=== PATIENT | female | born 1985 | race Caucasian/White ===

== ENCOUNTER 2018-10-21 19:20 | Inpatient (IN) | payer OTHER ==
[~2018-10-21 19:20] MED LIST: DEXTROSE 5%-LACTATED RINGERS 500 ML IV ONE
[2018-10-21] MEDS ORDERED: DEXTROSE 5%-LACTATED RINGERS 250 ML IV ONE (20:20)
[2018-10-21 21:04] LABS: BASO % 0.6 % (0-2.0); EOS % 0.3 % (0-4.5); HEMATOCRIT 37.5 % (32.4-45.2); HEMOGLOBIN 12.7 GM/dL (10.7-15.3); LYMPH % 18.9 % (8-40); MCH 31.1 pg (25.7-33.7); MCHC 33.9 g/dl (32.0-36.0); MEAN PLT VOLUME 9.9 fl (7.5-11.1); MONO % 5.5 % (3.8-10.2); NEUT % 74.7 % (42.8-82.8); PLATELET COUNT 157 K/MM3 (134-434); RBC 4.08 M/mm3 (3.60-5.2)
[2018-10-21] MEDS ORDERED: DEXTROSE 5%-LACTATED RINGERS 1,000 ML IV SCH ×2 (21:20→22:15)
[2018-10-21 21:21] LABS: INR 0.91 (0.83-1.09); PROTHROMBIN TIME (PATIENT) 10.7 SEC (9.7-13.0)
[2018-10-21 21:23] LABS: ACTIVATED PTT 26.9 SECONDS (25.2-36.5)
[2018-10-21 21:28] LABS: ANION GAP 10 MMOL/L (8-16); BLOOD UREA NITROGEN 12 mg/dL (7-18); CALCIUM 8.4 mg/dL (8.5-10.1); CHLORIDE 108 mmol/L (98-107); CO2 20 mmol/L (21-32); CREATININE 0.5 mg/dL (0.55-1.3); GLUCOSE,RANDOM 89 mg/dL (74-106); POTASSIUM 3.9 mmol/L (3.5-5.1); SODIUM 139 mmol/L (136-145)
[2018-10-21 21:40] VITALS: BMI 30.2
[2018-10-21] MEDS ORDERED: DINOPROSTONE 10 MG VAGINAL SUPPOSITORY VG ONE (22:00)
--- NOTE | 2018-10-21 22:08 | HP ---
Past Medical History - Admission Chief Complaint: Postdates History of Present Illness: 33 yo @ 40.6 weeks gestation, EDC 10/15/18, admitted for induction of labor. Upon admission she was 1cm dilated with favorable cervix. History Source: Patient Limitations to Obtaining History: No Limitations - Past Medical History ...: 4 ...Para: 1 ...Term: 1 ...: 0 ...Spon : 1 ...Induced : 1 ...Multiple Gestation: 0 ...LMP: 01/08/18 ... Weeks Gestation by Dates: 40.6 ...EDC by Dates: 10/15/18 - Past Surgical History Past Surgical History: Yes: None Hx Myomectomy: No Hx Transabdominal Cerclage: No - Smoking History Smoking history: Never smoked Have you smoked in the past 12 months: No - Alcohol/Substance Use Hx Alcohol Use: No - Social History Usual Living Arrangement: Yes: With Significant Other Home Medications - Allergies Allergies/Adverse Reactions: Allergies Allergy/AdvReac Type Severity Reaction Status Date / Time No Known Allergies Allergy Verified 10/21/18 21:17 - Home Medications Home Medications: Ambulatory Orders Vitamins (Sjr) - 1 tab PO DAILY 10/21/18 Family Disease History - Family Disease History Family History: Unremarkable Review of Systems - Review of Systems Constitutional: reports: No Symptoms Eyes: reports: No Symptoms HENT: reports: No Symptoms Neck: reports: No Symptoms Cardiovascular: reports: No Symptoms Respiratory: reports: No Symptoms Gastrointestinal: reports: No Symptoms Genitourinary: reports: No Symptoms Breasts: reports: No Symptoms Reported Neurological: reports: No Symptoms Psychiatric: reports: No Symptoms Pain Intensity: 2 Physical Exam - Maternity Vital Signs: Vital Signs Temperature 98.5 F 10/21/18 21:00 Pulse Rate 100 H 10/21/18 21:00 Respiratory Rate 20 10/21/18 21:00 Blood Pressure 105/62 10/21/18 21:00 O2 Sat by Pulse Oximetry (%) Constitutional: Yes: Well Nourished Eyes: Yes: Conjunctiva Clear HENT: Yes: Atraumatic Neck: Yes: Supple Cardiovascular: Yes: Regular Rate and Rhythm Lungs: Clear to auscultation - Abdominal Exam/OB Number of Fetuses: Single Presentation: Vertex - Vaginal Exam/OB Vaginal Bleediing: No Dilatation (cm): 1 Effacement (%): 70 Amniotic Membrane Status: Intact Presentation: Vertex/Position Station: -3 - Physical Exam ...Motor Strength: WNL Psychiatric: Yes: Alert, Oriented - Labs Lab Results: CBC, BMP 10/21/18 20:35 10/21/18 20:35 Problem List - Problems (1) Post-term , 40-42 weeks of gestation Code(s): O48.0 - POST-TERM Assessment/Plan Post term Admit for IOL Cervidil induction Re-evaluate in 12 hours or before if indicated.
--- NOTE | 2018-10-21 22:10 | PN ---
Progress Note (short form) - Note Progress Note: Patient re-evaluated. She c/o mild discomfort. FHR : Reassuring [place] : + contractions Q 1 min VE : 1-2 / 70 / -3 Cervidil removed Continue observation Problem List - Problems (1) Post-term , 40-42 weeks of gestation Code(s): O48.0 - POST-TERM
[2018-10-21] MEDS ORDERED: BUTORPHANOL TARTRATE 2 MG/ML VIAL ONE (23:35)
[2018-10-21] MEDS ORDERED: PROMETHAZINE HCL 25 MG/1 ML VIAL ONE (23:35)
[2018-10-21] MEDS ORDERED: BUTORPHANOL TARTRATE 2 MG/ML VIAL IVPB ONE (23:45)
[2018-10-21] MEDS ORDERED: PROMETHAZINE HCL 25 MG/1 ML VIAL IVPB ONE (23:45)
[2018-10-22] MEDS ORDERED: OXYTOCIN 30 UNITS in 0.9% NS 30 UNIT/500 ML INFUS.BAG IVPB SCH (01:15)
[2018-10-22] MEDS ORDERED: OXYTOCIN 30 UNITS in 0.9% NS 30 UNIT/500 ML INFUS.BAG IVPB ONE (01:15)
[2018-10-22] MEDS ORDERED: TERBUTALINE SULFATE 1 MG/1 ML VIAL SQ ONE ×2 (01:55→01:56)
--- NOTE | 2018-10-22 01:58 | PN ---
Progress Note (short form) - Note Progress Note: Patient re-evaluated. She c/o mild discomfort. FHR : Reassuring [place] : + contractions Q 1 min VE : 4/70/-2 Terbutaline trial to give uterus some rest. Continue observation Problem List - Problems (1) Post-term , 40-42 weeks of gestation Code(s): O48.0 - POST-TERM
--- NOTE | 2018-10-22 07:03 | PN ---
Progress Note (short form) - Note Progress Note: Patient re-evaluated. She c/o moderate discomfort. FHR : Non-reassuring [place] : + contractions Q 2 mins VE : 4/70/-2 + Meconium A/P : 41 weeks gestation Arrest of dilatation Pre op for Consent signed Anesthesia to see patient Problem List - Problems (1) Post-term , 40-42 weeks of gestation Code(s): O48.0 - POST-TERM
[2018-10-22] MEDS ORDERED: CITRIC ACID/SODIUM CITRATE 30 ML UNIT-DOSE CUP PO ONE (07:04)
[2018-10-22] MEDS ORDERED: ELECTROLYTE-148 SOLN 1,000 ML IV SCH (07:15)
[2018-10-22] MEDS ORDERED: OXYTOCIN 20 UNITS in 0.9% NS 20 UNIT/1,000 ML INFUS.BAG IV ONE ×2 (07:31→10:11)
[2018-10-22] MEDS ORDERED: ceFAZolin SODIUM 1 GM VIAL ONE (07:47)
[2018-10-22] MEDS ORDERED: morphine SULFATE/Preservative Free 0.5 MG/ML (1cc Syringe) ONE (07:48)
[2018-10-22] MEDS ORDERED: morphine SULFATE/Preservative Free 0.5 MG/ML (1cc Syringe) SPIN ONE (07:57)
[2018-10-22] MEDS ORDERED: PHENYLEPHRINE HCL 10 MG/1 ML SINGLE DOSE VIAL ONE (08:01)
[2018-10-22] MEDS ORDERED: OXYTOCIN 10 UNITS/ML VIAL ONE (08:05)
[2018-10-22] MEDS ORDERED: KETOROLAC TROMETHAMINE 30 MG/1 ML VIAL ONE (08:12)
[2018-10-22] MEDS ORDERED: ONDANSETRON 4 MG/2 ML VIAL IVPUSH PRN (08:17)
[2018-10-22] MEDS: OXYTOCIN 20 UNITS in 0.9% NS 20 UNIT/1,000 ML INFUS.BAG IV SCH ×2 (08:30→21:55)
[2018-10-22] MEDS ORDERED: METHYLERGONOVINE MALEATE 0.2 MG/1 ML AMP IM PRN (08:43)
--- NOTE | 2018-10-22 08:46 | OP ---
Operative Note - Note: Operative Date: 10/22/18 Pre-Operative Diagnosis: Arrest of dilatation Operation: Primary Low Transverse Findings: Baby girl in cephallic presentation Post-Operative Diagnosis: Same as Pre-op Surgeon: Iesha Miranda Wordpress Developer: Reuben Saavedra Anesthesia: Spinal Specimens Removed: Placenta Estimated Blood Loss (mls): 600 Operative Report Dictated: Yes
[2018-10-22] MEDS: PRENATAL VITAMINS W/ FOLIC ACID TABLET (FP) PO SCH (10:00)
[2018-10-22] MEDS: FERROUS SO4 325 MG TABLET (FP) PO SCH ×2 (10:00→22:08)
--- NOTE | 2018-10-22 10:23 | OP ---
DATE OF OPERATION: 10/22/2018 PREOPERATIVE DIAGNOSIS: A 41 weeks' gestation with arrest of dilatation. POSTOPERATIVE DIAGNOSIS: A 41 weeks' gestation with arrest of dilatation. PROCEDURE: Primary low transverse section. SURGEON: Iesha Miranda MD FEED WEIGHER: JERRELL Madrigal ANESTHESIA: Spinal. COMPLICATIONS: None. ESTIMATED BLOOD LOSS: 600 mL. DESCRIPTION OF PROCEDURE: Patient was taken to the operating room where spinal anesthesia was administered. Patient was then prepped and draped in proper sterile fashion. A Pfannenstiel skin incision was made and carried down to through the underlying layer of fascia. The fascia was incised in the midline and extended laterally. The superior aspect of the fascial incision was then grasped with a Emely clamp, elevated, and the rectus muscles dissected off bluntly. The rectus muscle was then in the midline. The peritoneum identified and entered sharply with the Metzenbaum scissors. The peritoneal incision was extended superiorly and inferiorly with good visualization of the bladder. The bladder blade was then inserted. Then the vesicouterine peritoneum was then grasped with pickups and entered sharply with the Metzenbaum scissors. This incision was extended laterally, and a bladder flap created digitally. The lower uterine segment was then incised with a 10 blade. This incision was then extended, and the head delivered atraumatically. Nose and mouth were suctioned, and the cord clamped and cut. The was handed to the awaiting general office assistant. The placenta was then removed manually. The uterus was exteriorized and cleared of all clots and debris. The uterine incision was repaired using 0 Biosyn in a running locked fashion, and the second layer of the same suture was used as a means to provide excellent hemostasis. Then, the pelvis was then completely irrigated. The uterus was returned to the abdomen. The peritoneum was closed using 2-0 Biosyn. The fascia was reapproximated using 0 Vicryl in a running fashion. The skin was closed in a subcuticular fashion using 3-0 Vicryl. Patient tolerated procedure well. Patient was taken to PACU in stable condition. PATHOLOGY: Placenta. Valentín [id number] MTDD
[2018-10-22] MEDS ORDERED: SODIUM CHLORIDE 100 ML IVPB ONE (13:27)
[2018-10-22] MEDS ORDERED: AMPICILLIN SODIUM 1 GM VIAL ONE (13:27)
[2018-10-22] MEDS: IBUPROFEN 800 MG/8 ML IJ IVPB PRN ×2 (14:09→21:55)
[2018-10-23 08:07] LABS: BASO % 0.3 % (0-2.0); EOS % 0.5 % (0-4.5); HEMATOCRIT 30.7 % (32.4-45.2); HEMOGLOBIN 10.6 GM/dL (10.7-15.3); LYMPH % 19.8 % (8-40); MCHC 34.7 g/dl (32.0-36.0); MEAN CELL VOLUME 92.2 fl (80-96); MEAN PLT VOLUME 9.5 fl (7.5-11.1); MONO % 6.3 % (3.8-10.2); NEUT % 73.1 % (42.8-82.8); PLATELET COUNT 130 K/MM3 (134-434); RBC 3.33 M/mm3 (3.60-5.2); WHITE BLOOD COUNT 10.2 K/mm3 (4.0-10.0)
[2018-10-23] MEDS: ACETAMINOPHEN 325 MG TABLET (FP) PO PRN ×3 (08:33→21:27)
[2018-10-23] MEDS: IBUPROFEN 600 MG TABLET (FP) PO PRN ×3 (08:34→21:27)
[2018-10-23] MEDS: SIMETHICONE 80 MG TAB.CHEW (FP) PO PRN (08:34)
[2018-10-23] MEDS ORDERED: BISACODYL 10 MG SUPP.RECT RC PRN (08:43)
[2018-10-23] MEDS: PRENATAL VITAMINS W/ FOLIC ACID TABLET (FP) PO SCH (10:26)
[2018-10-23] MEDS: FERROUS SO4 325 MG TABLET (FP) PO SCH ×2 (10:26→22:19)
--- NOTE | 2018-10-23 13:56 | PN ---
Progress Note (short form) - Note Progress Note: POD #1 - s/p under spinal anesthesia with duramorph. VSS. Pt. doing well, resting comfortably in bed. No complaints. Good pain control. No apparent anesthetic complications noted. Continue current care.
--- NOTE | 2018-10-24 05:30 | PN ---
Post Progress Note - Subjective Subjective: Pt seen/evaluated and doing well. Some incisional pain but improves with medicine. Tolerating diet. Ambulating, voiding. VB minimal. No complaints this a.m. Type of Delivery: Primary C/S Vital Signs: Vital Signs Temperature 98.6 F 10/23/18 22:00 Pulse Rate 67 10/23/18 22:00 Respiratory Rate 18 10/23/18 22:00 Blood Pressure 118/63 10/23/18 22:00 O2 Sat by Pulse Oximetry (%) 98 10/22/18 21:19 Breast Exam: Yes: Soft Uterus: Yes: Fundus Firm Incision: Yes: Dressing dry and intact Abdomen/GI: Yes: Abdomen soft, Tolerating PO. No: Abdominal Distention Lochia: Yes: Rubra Lochia, amount: Small Extremities: Yes: Calves non-tender Perineum: Yes: Intact Activity: Ambulating - Labs Labs: CBC WBC 10.2 K/mm3 (4.0-10.0) H 10/23/18 07:36 RBC 3.33 M/mm3 (3.60-5.2) L 10/23/18 07:36 Hgb 10.6 GM/dL (10.7-15.3) L 10/23/18 07:36 Hct 30.7 % (32.4-45.2) L D 10/23/18 07:36 MCV 92.2 fl (80-96) 10/23/18 07:36 MCH 32.0 pg (25.7-33.7) 10/23/18 07:36 MCHC 34.7 g/dl (32.0-36.0) 10/23/18 07:36 RDW 16.0 % (11.6-15.6) H 10/23/18 07:36 Plt Count 130 K/MM3 (134-434) L 10/23/18 07:36 MPV 9.5 fl (7.5-11.1) 10/23/18 07:36 Absolute Neuts (auto) 7.5 K/mm3 (1.5-8.0) 10/23/18 07:36 Neutrophils % 73.1 % (42.8-82.8) 10/23/18 07:36 Lymphocytes % 19.8 % (8-40) 10/23/18 07:36 Monocytes % 6.3 % (3.8-10.2) 10/23/18 07:36 Eosinophils % 0.5 % (0-4.5) 10/23/18 07:36 Basophils % 0.3 % (0-2.0) 10/23/18 07:36 Nucleated RBC % 0 % (0-0) 10/23/18 07:36 Problem List - Problems (1) delivery delivered Code(s): O82 - ENCOUNTER FOR DELIVERY WITHOUT INDICATION Assessment/Plan 33 y/o PPD#2 s/p primary delivery for arrest of dilation AFVSS Hgb 10.6, will repeat in a.m. regular diet PO pain meds encourage ambulation
[2018-10-24] MEDS: ACETAMINOPHEN 325 MG TABLET (FP) PO PRN (06:26)
[2018-10-24] MEDS: SIMETHICONE 80 MG TAB.CHEW (FP) PO PRN ×3 (06:26→21:17)
[2018-10-24] MEDS: IBUPROFEN 600 MG TABLET (FP) PO PRN ×3 (06:27→21:17)
[2018-10-24] MEDS: PRENATAL VITAMINS W/ FOLIC ACID TABLET (FP) PO SCH (09:12)
[2018-10-24] MEDS: FERROUS SO4 325 MG TABLET (FP) PO SCH ×2 (09:12→21:17)
[2018-10-24] MEDS: oxyCODONE HCL 5 MG TABLET PO PRN ×2 (12:44→21:17)
[2018-10-25 06:42] LABS: BASO % 0.6 % (0-2.0); EOS % 1.3 % (0-4.5); HEMATOCRIT 34.7 % (32.4-45.2); HEMOGLOBIN 11.7 GM/dL (10.7-15.3); LYMPH % 25.8 % (8-40); MCH 31.1 pg (25.7-33.7); MCHC 33.7 g/dl (32.0-36.0); MEAN CELL VOLUME 92.1 fl (80-96); MEAN PLT VOLUME 9.1 fl (7.5-11.1); MONO % 5.3 % (3.8-10.2); PLATELET COUNT 176 K/MM3 (134-434); RBC 3.77 M/mm3 (3.60-5.2); RDW 15.9 % (11.6-15.6); WHITE BLOOD COUNT 9.2 K/mm3 (4.0-10.0)
[2018-10-25] MEDS: PRENATAL VITAMINS W/ FOLIC ACID TABLET (FP) PO SCH (09:50)
[2018-10-25] MEDS: FERROUS SO4 325 MG TABLET (FP) PO SCH (09:50)
--- NOTE | 2018-10-25 09:51 | DS ---
Physical Exam-SEARCH ENGINE OPTIMIZER Vital Signs: Vital Signs Temperature 98.1 F 10/24/18 22:00 Pulse Rate 66 10/24/18 22:00 Respiratory Rate 20 10/24/18 22:00 Blood Pressure 109/75 10/24/18 22:00 O2 Sat by Pulse Oximetry (%) 98 10/22/18 21:19 Constitutional: Yes: Well Nourished, No Distress, Calm Eyes: Yes: Conjunctiva Clear, EOM Intact HENT: Yes: Normocephalic Neck: Yes: Supple Cardiovascular: Yes: Regular Rate and Rhythm Respiratory: Yes: Regular Gastrointestinal: Yes: Soft External Genitalia: Yes: Normal ....Post : Yes: Uterus firm, Uterus non-tender Wound/Incision: Yes: Clean/Dry, Well Approximated Psychiatric: Yes: Alert, Oriented Labs: CBC, BMP 10/25/18 06:30 10/21/18 20:35 Delivery - Delivery Type of Anesthesia: Spinal Episiotomy/Laceration: None EBL (cc): 500 Delivery, Single - Stages of Labor Date 1st Stage Initiatied: 10/22/18 Time 1st Stage Initiated: 00:00 Date of Delivery: 10/22/18 Time of Delivery: 08:09 Time Placenta Delivered: 08:10 Placenta: Yes: Manual Removal - Condition of Infant Developmental Training Counselor/Alteration Tailor Present: Yes Name: Raf Rice Infant Gender: Female Weight: 9 lb 1 oz Total Hours ROM (Hrs/Mins): 7/05 - 1 Minute Total Score: 8 5 Minutes Total Score: 9 - Feeding Plan Initial Plan: Elected not to breastfeed exclusively throughout hospitalization Discharge Summary Reason For Visit: CERVICAL INDUCTION Current Active Problems delivery delivered (Acute) Post-term , 40-42 weeks of gestation (Acute) Hospital Course: Pt admitted for labor induction and underwent uncomplicated delivery on 10/22/18 for arrest of dilation. She underwent an uncomplicated post / post op course and was discharged home on post op day 3. - Instructions - Home Medications Comprehensive Discharge Medication List: Ambulatory Orders Vitamins (Sjr) - 1 tab PO DAILY 10/21/18
[2018-10-25] MEDS: ACETAMINOPHEN 325 MG TABLET (FP) PO PRN (09:54)
[2018-10-25] MEDS: IBUPROFEN 600 MG TABLET (FP) PO PRN (09:55)
[2018-10-25] MEDS: SIMETHICONE 80 MG TAB.CHEW (FP) PO PRN (09:56)
[2018-10-25 10:22] VITALS: BP 103/62; PULSE 62; TEMP 97.9
--- NOTE | 2018-10-28 18:33 | PATH ---
Surgical Pathology Report Patient Name: ISIDRA ZAMBRANO Med. Rec. #: [id number] /Age/Gender: 1985 (Age: 33) / F Account: [id number] Location: [facility] OBS/ADOLESCENT SPECIALIST Taken: 10/22/2018 Received: 10/22/2018 Reported: 10/28/2018 Physicians: Iesha Miranda M.D. Specimen(s) Received PLACENTA Clinical History , arrest of dilatation Final Diagnosis PLACENTA, SECTION: 534 G THIRD TRIMESTER PLACENTA WITH TRIVASCULAR UMBILICAL CORD AND UNREMARKABLE PLACENTAL MEMBRANES. Electronically Signed Isidra Brito M.D. Gross Description The specimen is received fresh labeled placenta and is a 534 gram, 20.0 x 15.0 x 3.2 cm. markedly fragmented and disrupted placenta with attached membranes and umbilical cord. The attached membranes are maciel, translucent with focal opacities and insert marginally. The umbilical cord measures 15.5 cm. in length and averages 1.1 cm. in diameter. There is an additional 15 cm in length portion of umbilical cord separately received within the same container. The cord inserts eccentrically, 3.5 cm. to the nearest margin. No true knots or strictures are identified. Cut surface of the umbilical cord reveals 3 vessels. The surface is saucedo-blue with minimal fibrin deposition and appropriate caliber vessels. The maternal surface is red-brown with multi-focal defects. Sectioning reveals red-brown, spongy parenchyma. No lesions are identified. Embroidery Finisher sections are submitted in three cassettes as follows: 1- membrane rolls and umbilical cord; 2-3- full thickness sections of placenta. /10/26/[address] [facility]10/26/2018
== END 2018-10-25 11:45 | disposition home or self-care (01) | DRG 540 ==
LOC: JLDR 19:20 → J3W 10-22 10:50
PROVIDERS: ADMIT Obstetrics & Gynecology; ATTEND Obstetrics & Gynecology
PROC: 3E0P7VZ Introduction of Hormone into Female Reproductive, Via Natural or Artificial Opening (ICD-10-PCS; 2018-10-21)
PROC: 10D00Z1 Extraction of Products of Conception, Low, Open Approach (ICD-10-PCS; principal; 2018-10-22)
DX: O77.0 Labor and delivery complicated by meconium in amniotic fluid (principal); O62.1 Secondary uterine inertia; Z3A.41 41 weeks gestation of pregnancy; Z37.0 Single live birth
CPT/HCPCS: 36415; 80048; 85025; 85610; 85730; 86593; 86850; 86900; 86901; 88307-TC

== ENCOUNTER 2020-01-19 06:20 | Inpatient (IN) | payer OTHER ==
[2020-01-19] MEDS: ELECTROLYTE-148 SOLN 1,000 ML IV SCH (07:00)
[2020-01-19 07:23] VITALS: BMI 30.8
[2020-01-19] MEDS ORDERED: OXYTOCIN 10 UNITS/ML VIAL ONE (07:51)
[2020-01-19] MEDS ORDERED: ceFAZolin SODIUM 1 GM VIAL ONE (07:51)
[2020-01-19] MEDS ORDERED: PHENYLEPHRINE HCL 10 MG/1 ML SINGLE DOSE VIAL ONE (07:51)
[2020-01-19] MEDS ORDERED: morphine SULFATE/PF 0.5 MG/ML (2cc Syringe - QUVA) ONE (07:51)
[2020-01-19] MEDS ORDERED: OXYTOCIN 20 UNITS in 0.9% NS 40 UNIT/2,000 ML INFUS.BAG IV ONE (07:55)
--- NOTE | 2020-01-19 08:43 | HP ---
Past Medical History - Admission Chief Complaint: Elective History of Present Illness: 34 yo @ 39 weeks gestation, EDC 01/26/20, with previous , is pre op for repeat and BTL. History Source: Patient Limitations to Obtaining History: No Limitations - Past Medical History ...: 3 ...Para: 2 ...Term: 2 ...: 0 ...Spon : 0 ...Induced : 0 ...Living Children: 2 ...Multiple Gestation: 0 ...EDC by Sono: 01/26/20 - Past Surgical History Past Surgical History: Yes: Hx Myomectomy: No Hx Transabdominal Cerclage: No - Smoking History Smoking history: Never smoked Have you smoked in the past 12 months: No - Alcohol/Substance Use Hx Alcohol Use: No History of Substance Use: reports: None - Social History Usual Living Arrangement: Yes: With Significant Other History of Recent Travel: No Home Medications - Allergies Allergies/Adverse Reactions: Allergies Allergy/AdvReac Type Severity Reaction Status Date / Time No Known Allergies Allergy Verified 10/21/18 21:17 - Home Medications Home Medications: Ambulatory Orders Vitamins (Sjr) - 1 tab PO DAILY 10/21/18 Ibuprofen [Motrin -] 600 mg PO QID PRN #28 tablet 10/25/18 Oxycodone HCl/Acetaminophen [Percocet 5-325 mg Tablet -] 1 tab PO Q4H #20 tablet MDD 6 10/25/18 Family Medical History Family History: Unremarkable Review of Systems - Review of Systems Constitutional: reports: No Symptoms Eyes: reports: No Symptoms HENT: reports: No Symptoms Neck: reports: No Symptoms Cardiovascular: reports: No Symptoms Respiratory: reports: No Symptoms Gastrointestinal: reports: No Symptoms Genitourinary: reports: No Symptoms Breasts: reports: No Symptoms Reported Musculoskeletal: reports: No Symptoms Integumentary: reports: No Symptoms Neurological: reports: No Symptoms Psychiatric: reports: No Symptoms Pain Intensity: 0 Physical Exam - Maternity Vital Signs: Vital Signs Temperature 98.2 F 01/19/20 06:20 Pulse Rate 67 01/19/20 06:20 Respiratory Rate 18 01/19/20 06:20 Blood Pressure 103/51 L 01/19/20 06:20 O2 Sat by Pulse Oximetry (%) Constitutional: Yes: No Distress Eyes: Yes: Conjunctiva Clear HENT: Yes: Atraumatic Neck: Yes: Supple Cardiovascular: Yes: Regular Rate and Rhythm Lungs: Clear to auscultation - Abdominal Exam/OB Number of Fetuses: Single Presentation: Vertex - Physical Exam Musculoskeletal: Yes: WNL ...Motor Strength: WNL Psychiatric: Yes: Alert, Oriented Problem List - Problems (1) Previous section Problems reviewed: Yes Code(s): Z98.891 - HISTORY OF UTERINE SCAR FROM PREVIOUS SURGERY (2) Multiparity Problems reviewed: Yes Code(s): Z64.1 - PROBLEMS RELATED TO MULTIPARITY (3) Sterilization Problems reviewed: Yes Code(s): Z30.2 - ENCOUNTER FOR STERILIZATION Assessment/Plan Previous Pre op for repeat Consent signed Anesthesia to see patient
[2020-01-19] MEDS ORDERED: DEXAMETHASONE SOD PHOSPHATE 4 MG/1 ML VIAL ONE (09:00)
[2020-01-19] MEDS ORDERED: METHYLERGONOVINE MALEATE 0.2 MG/1 ML AMP IM PRN (09:42)
--- NOTE | 2020-01-19 09:42 | OP ---
Operative Note - Note: Operative Date: 01/19/20 Pre-Operative Diagnosis: Previous / Multiparity Operation: Repeat Low Transvese / Bilateral tubal ligation Findings: Baby girl in ROT position Post-Operative Diagnosis: Same as Pre-op Surgeon: Iesha Miranda Welfare Aide: Reuben Saavedra Anesthesia: Spinal Specimens Removed: Placenta / Portion of fallopian tubes Estimated Blood Loss (mls): 700
--- NOTE | 2020-01-19 09:54 | PN ---
Progress Note (short form) - Note Progress Note: Attened C/s for this 34yrs old mother with PNL- umm. COVID -19 neg, Quaniferon Pos delivered, clear fluid, cried soon after suctioned/ dried cord 3V, 9/9 clinically stable, [place] well perfused, HEENT- normocephalic AFOF, Chest B/L Symm, S1-S2 nl no murmur No organomegaly, Nl female FROM, Nl hip exam. Good tone & activity. RNBc watch for resp distress Encourage Bf/ bonding
[2020-01-19] MEDS: OXYTOCIN 20 UNITS in 0.9% NS 20 UNIT/1,000 ML INFUS.BAG IV SCH (09:55)
[2020-01-19] MEDS ORDERED: ONDANSETRON 4 MG/2 ML VIAL IVPUSH PRN (10:01)
[2020-01-19] MEDS ORDERED: ACETAMINOPHEN 1000 MG/100 ML VIAL (NON FORMULARY) IVPB PRN (10:02)
[2020-01-19] MEDS: FERROUS SO4 325 MG TABLET (FP) PO SCH ×2 (10:54→23:27)
[2020-01-19] MEDS: PRENATAL VITAMINS W/ FOLIC ACID TABLET (FP) PO SCH (10:54)
[2020-01-19] MEDS ORDERED: IBUPROFEN 800 MG/8 ML IJ IVPB ONE (11:04)
[2020-01-19] MEDS: IBUPROFEN 800 MG/8 ML IJ IVPB PRN (11:20)
--- NOTE | 2020-01-19 17:46 | OP ---
DATE OF OPERATION: 01/19/2020 PREOPERATIVE DIAGNOSIS: 39 weeks gestational, previous section, multiparity, desires permanent sterilization. POSTOPERATIVE DIAGNOSIS: 39 weeks gestational, previous section, multiparity, desires permanent sterilization. PROCEDURE: Repeat low transverse section and bilateral tubal ligation. SURGEON: Iesha Miranda MD. COLD ROLLING COORDINATOR: JERRELL Madrigal. ANESTHESIA: Spinal. COMPLICATIONS: None. ESTIMATED BLOOD LOSS: 700 mL. PROCEDURE: Patient was taken to the operating room where spinal anesthesia was administered. Patient was then prepped and draped in proper sterile fashion. A Pfannenstiel skin incision was made and carried down to the underlying layer of fascia. Fascia was incised in the midline and extended laterally. The superior aspect of the fascial incision was then grasped with a Emely clamp, elevated, and the rectus muscle dissected off bluntly. Attention was then turned to the inferior aspect of the fascial incision, which in a similar fashion was then grasped with a Emely clamp, elevated, and the rectus muscle dissected off bluntly. The rectus muscle was then in the midline, and the peritoneum identified and entered sharply with the Metzenbaum scissors. The peritoneal incision was extended superiorly and inferiorly with good visualization of the bladder. Then the vesicouterine peritoneum was then grasped with a pickup, and entered sharply with Metzenbaum scissors. This incision was extended laterally and a bladder flap created digitally. The bladder blade was inserted and the lower uterine segment was incised using a 10 blade. This incision was extended laterally, and the head delivered atraumatically. Nose and mouth were suctioned, and the cord clamped and cut. The was handed to the waiting education reviewer. The placenta was then removed manually. The uterus exteriorized and cleared of all clots and debris, the uterine incision was repaired using 0 Biosyn in a running locked fashion. The second layer of the same suture was used as a means to provide excellent hemostasis. Then the pelvis was completely irrigated, the uterus was returned to the abdomen, the peritoneum was closed using 2-0 Biosyn. The fascia was reapproximated using 0 Vicryl in a running fashion. The skin was closed in a subcuticular fashion using 3-0 Vicryl. Patient tolerated procedure well. Patient was then taken to PACU in stable condition. ADDENDUM: The right fallopian tube was grasped with a Paoli, and using plain gut segment of the tube was then doubly tied, then cut, and the tip of the tube was then cauterized using the Bovie cautery. The same procedure was performed on the left side. PATHOLOGY: Placenta and portion of the fallopian tube. IESHA MIRANDA M.D. [id number]
[2020-01-20] MEDS: IBUPROFEN 800 MG/8 ML IJ IVPB PRN (02:10)
--- NOTE | 2020-01-20 06:47 | PN ---
Post Note - Post Date of Delivery: 01/19/20 Post Day: 1 Vital Signs: Vital Signs - 24 hr 01/19/20 01/19/20 01/19/20 09:55 10:10 10:25 Temperature 97.8 F Pulse Rate 74 70 73 Respiratory 17 17 16 Rate Blood Pressure 104/56 L 102/59 L 101/57 L O2 Sat by Pulse 98 99 99 Oximetry (%) 01/19/20 01/19/20 01/19/20 10:40 10:55 11:45 Temperature 97.8 F 97.4 F L Pulse Rate 74 64 66 Respiratory 15 15 20 Rate Blood Pressure 93/57 L 94/62 99/63 O2 Sat by Pulse 99 99 Oximetry (%) 01/19/20 01/19/20 01/19/20 12:00 13:00 14:00 Temperature 97.7 F Pulse Rate 80 Respiratory 20 18 20 Rate Blood Pressure 94/54 L O2 Sat by Pulse Oximetry (%) 01/19/20 01/19/20 01/19/20 15:00 16:00 17:00 Temperature Pulse Rate Respiratory 18 18 20 Rate Blood Pressure O2 Sat by Pulse Oximetry (%) 01/19/20 01/19/20 01/19/20 17:58 18:00 19:00 Temperature 99.0 F Pulse Rate 89 Respiratory 20 20 20 Rate Blood Pressure 101/53 L O2 Sat by Pulse Oximetry (%) 01/19/20 01/19/20 01/19/20 20:00 20:50 21:00 Temperature 98.0 F Pulse Rate 72 Respiratory 20 20 20 Rate Blood Pressure 90/50 L O2 Sat by Pulse Oximetry (%) 01/19/20 01/19/20 01/20/20 22:00 23:00 00:00 Temperature Pulse Rate Respiratory 20 20 20 Rate Blood Pressure O2 Sat by Pulse Oximetry (%) 01/20/20 01/20/20 01/20/20 00:21 01:00 02:00 Temperature 97.9 F Pulse Rate 67 Respiratory 18 20 20 Rate Blood Pressure 94/54 L O2 Sat by Pulse Oximetry (%) 01/20/20 01/20/20 01/20/20 03:00 04:00 05:00 Temperature Pulse Rate Respiratory 20 20 20 Rate Blood Pressure O2 Sat by Pulse Oximetry (%) 01/20/20 06:00 Temperature Pulse Rate Respiratory 20 Rate Blood Pressure O2 Sat by Pulse Oximetry (%) - Subjective Subjective: No Complaints, No Nausea or vomiting, Scant lochia, Other (Pt seen at bedside) - Objective Afebrile: Yes Breast: Not engorged Abdomen: Soft, Non-tender, Other (incsion dry intact) Uterus: Fundus firm, Non-tender Vagina: Scant lochia Extremities: Non-tender - Assessment/Plan (2) delivery delivered Plan: Routine Care
[2020-01-20 07:30] LABS: BASO % 0.3 % (0-2.0); EOS % 0.4 % (0-4.5); HEMATOCRIT 34.5 % (32.4-45.2); HEMOGLOBIN 11.5 GM/dL (10.7-15.3); LYMPH % 16.5 % (8-40); MCH 31.1 pg (25.7-33.7); MCHC 33.4 g/dl (32.0-36.0); MEAN CELL VOLUME 93.3 fl (80-96); MEAN PLT VOLUME 10.1 fl (7.5-11.1); MONO % 6.8 % (3.8-10.2); PLATELET COUNT 173 K/MM3 (134-434); RDW 14.3 % (11.6-15.6); WHITE BLOOD COUNT 12.5 K/mm3 (4.0-10.0)
[2020-01-20] MEDS ORDERED: BISACODYL 10 MG SUPP.RECT RC PRN (09:43)
[2020-01-20] MEDS ORDERED: DIPHTH,PERTUSS(ACELL),TET 0.5 ML DISP.SYRIN IM ONE (10:00)
[2020-01-20] MEDS: SIMETHICONE 80 MG TAB.CHEW (FP) PO PRN ×3 (11:11→23:40)
[2020-01-20] MEDS: FERROUS SO4 325 MG TABLET (FP) PO SCH ×2 (11:11→23:41)
[2020-01-20] MEDS: PRENATAL VITAMINS W/ FOLIC ACID TABLET (FP) PO SCH (11:12)
[2020-01-20] MEDS: IBUPROFEN 600 MG TABLET (FP) PO PRN ×3 (11:12→23:40)
[2020-01-20] MEDS: OXYTOCIN 20 UNITS in 0.9% NS 20 UNIT/1,000 ML INFUS.BAG IV SCH (16:36)
[2020-01-20] MEDS: ELECTROLYTE-148 SOLN 1,000 ML IV SCH (16:37)
[2020-01-20] MEDS: oxyCODONE HCL 5 MG TABLET PO PRN ×2 (16:44→23:40)
[2020-01-21] MEDS: IBUPROFEN 600 MG TABLET (FP) PO PRN (06:33)
[2020-01-21] MEDS: oxyCODONE HCL 5 MG TABLET PO PRN (06:33)
--- NOTE | 2020-01-21 06:55 | DS ---
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 Vital Signs: Vital Signs Temperature 97.5 F L 01/20/20 22:00 Pulse Rate 68 01/20/20 22:00 Respiratory Rate 18 01/20/20 22:00 Blood Pressure 106/67 01/20/20 22:00 O2 Sat by Pulse Oximetry (%) 99 01/19/20 10:55 Constitutional: Yes: No Distress Eyes: Yes: Conjunctiva Clear HENT: Yes: Atraumatic Neck: Yes: Supple Cardiovascular: Yes: Regular Rate and Rhythm Respiratory: Yes: Regular Gastrointestinal: Yes: Normal Bowel Sounds External Genitalia: Yes: Normal Vaginal Exam: Yes: Normal Cervix: Yes: Normal Musculoskeletal: Yes: WNL Extremities: Yes: WNL Wound/Incision: Yes: Well Approximated, Steri Strips (in place) Neurological: Yes: Alert, Oriented ...Motor Strength: WNL Psychiatric: Yes: Alert, Oriented Labs: CBC, BMP 01/20/20 06:27 Delivery - Delivery Type of Anesthesia: Spinal Episiotomy/Laceration: None EBL (cc): 700 Delivery, Single - Stages of Labor Date of Delivery: 01/19/20 Time of Delivery: 08:58 Time Placenta Delivered: 09:00 - Condition of Infant Bath Tester/Natural Remedy Consultant Present: Yes Name: Juan Ramon Jalloh Infant Gender: Female Weight: 8 lb 6 oz Position: Right, OT Total Hours ROM (Hrs/Mins): 0Hrs/2Mis - 1 Minute Total Score: 9 5 Minutes Total Score: 9 - Feeding Plan Initial Plan: Elected not to breastfeed exclusively throughout hospitalization Discharge Summary Problems reviewed: Yes Reason For Visit: SCHEDULED Current Active Problems Multiparity (Acute) Previous section (Acute) Status post repeat low transverse section (Acute) Sterilization (Acute) Procedures: Principal: Repeat Low Transverse Hospital Course: Routine post op care Health Concerns: None Plan of Treatment: Ambulation Analgesia as needed F/U with MD in 1 week Goals: Resume regular activities in 4 weeks Condition: Good - Instructions Diet, Activity, Other Instructions: Regular diet No driving, no lifting x 4 weeks F/U with MD in one week Referrals: Frida De MD [Primary Care Provider] - - Home Medications Comprehensive Discharge Medication List: Ambulatory Orders Vitamins (Sjr) - 1 tab PO DAILY 10/21/18 Ibuprofen [Motrin -] 600 mg PO QID PRN #28 tablet 10/25/18 Oxycodone HCl/Acetaminophen [Percocet 5-325 mg Tablet -] 1 tab PO Q4H #20 tablet MDD 6 10/25/18 Ibuprofen [Motrin -] 600 mg PO Q4H PRN #60 tablet 01/21/20
[2020-01-21] MEDS: PRENATAL VITAMINS W/ FOLIC ACID TABLET (FP) PO SCH (09:46)
[2020-01-21] MEDS: FERROUS SO4 325 MG TABLET (FP) PO SCH (09:46)
[2020-01-21 10:52] VITALS: BP 98/63; PULSE 81; TEMP 97.4
--- NOTE | 2020-01-26 17:08 | PATH ---
Surgical Pathology Report Patient Name: GRACE ZAMBRANO [facility]. Rec. #: [id number] /Age/Gender: 1985 (Age: 34) / F Account: [id number] Location: [facility] OBS/ANGIOGRAPHY NURSE Taken: 01/19/2020 Received: 01/20/2020 Reported: 01/26/2020 Physicians: Iesha Miranda M.D. Specimen(s) Received A: PLACENTA B: RIGHT FALLOPIAN TUBE C: LEFT FALLOPIAN TUBE Clinical History , 39 weeks Final Diagnosis A. PLACENTA: THIRD TRIMESTER PLACENTA. TRIVASCULAR CORD. MEMBRANES WITH NO DIAGNOSTIC ABNORMALITIES. B. PORTION OF RIGHT FALLOPIAN TUBE, RESECTION: COMPLETE CROSS SECTION OF THE FALLOPIAN TUBE LUMEN IDENTIFIED. C. PORTION OF LEFT FALLOPIAN TUBE, RESECTION: COMPLETE CROSS SECTION OF THE FALLOPIAN TUBE LUMEN IDENTIFIED. Electronically Signed Missael Barbour M.D. Gross Description A. The specimen is received fresh labeled placenta and is a 542 gram, 18.5 x 15.5 x 3.0 cm. placenta with attached membranes and umbilical cord. The attached membranes are maciel, translucent with focal opacities and insert marginally. The umbilical cord measures 39 cm. in length and averages 1 cm. in diameter. The cord inserts centrally. No true knots or strictures are identified. Cut surface of the umbilical cord reveals 3 vessels. The surface is saucedo-blue with minimal fibrin deposition and appropriate caliber vessels. The maternal surface is red-brown with focal defects. Sectioning reveals red-brown, spongy parenchyma. No lesions are identified. [employer] sections are submitted in three cassettes as follows: 1- membrane rolls and umbilical cord; 2-3- full thickness sections of placenta. B. Received in formalin labeled "portion of right fallopian tube," is a 1.6 cm in length portion of fallopian tube. No fimbria are present. The outer surface is maciel-stubbs and smooth. Sectioning reveals an unremarkable lumen. [employer] sections are submitted in one cassette. C. Received in formalin labeled "portion of left fallopian tube," is a 1.2 cm in length portion of fallopian tube. No fimbria are present. The outer surface is maciel-stubbs and smooth. Sectioning reveals an unremarkable lumen. [employer] sections are submitted in one cassette. /01/22/202001/22/2020
== END 2020-01-21 11:53 | disposition home or self-care (01) | DRG 540 ==
LOC: JLDR 06:20 → J3W 11:45
PROVIDERS: ADMIT Obstetrics & Gynecology; ATTEND Obstetrics & Gynecology
PROC: 10D00Z1 Extraction of Products of Conception, Low, Open Approach (ICD-10-PCS; principal; 2020-01-19)
PROC: 0UL70ZZ Occlusion of Bilateral Fallopian Tubes, Open Approach (ICD-10-PCS; 2020-01-19)
DX: O75.82 Onset (spontaneous) of labor after 37 completed weeks of gestation but before 39 completed weeks gestation, with delivery by (planned) cesarean section (principal); O34.211 Maternal care for low transverse scar from previous cesarean delivery; N85.8 Other specified noninflammatory disorders of uterus; Z3A.39 39 weeks gestation of pregnancy; Z37.0 Single live birth; Z30.2 Encounter for sterilization
CPT/HCPCS: 36415; 71046-TC-FY; 85025; 88302-TC; 88307-TC; 90715; J0131